=== PATIENT | female | born 2000 | race Caucasian/White ===

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

== ENCOUNTER → 2022-01-19 11:59 | Outpatient (BNVA) | payer OTHER, SELFPAY | PROVIDERS: Family Provider Nurse Practitioner Family; PCP Nurse Practitioner Family; Visit Provider Registered Nurse | DX: R42 Dizziness and giddiness (principal); Z71.3 Dietary counseling and surveillance; L81.9 Disorder of pigmentation, unspecified | CPT/HCPCS: 80053; 82607; 84443; 85025; 85651; 86140 ==

== ENCOUNTER 2022-01-26 14:22 | Outpatient (CLI) | payer OTHER, SELFPAY ==
--- NOTE | 2022-01-26 14:30 | CT_ITS ---
WS: [id number] CT HEAD TECHNIQUE: Noncontrast CT of the head obtained from the skullbase to the vertex. CLINICAL INFORMATION: R51 - Headache COMPARISON: None. DLP: 1107.[address] scans at [facility] use at least one of these dose optimization techniques: automated e xposure control; mA and/or kV adjustment per patient size (includes targeted exams where dose is matc hed to clinical indication); or iterative reconstruction. FINDINGS: No evidence of intracranial hemorrhage or mass effect. Ventricular system and basal cisterns are calvo nt No extra-axial fluid collections. No evidence of mass or mass effect. Normal alvarez-white differenti ation. Paranasal sinuses and mastoid air cells are well aerated. Mild mucosal thickening sphenoid sinus. .No rmal visualized soft tissues. CT/CT head wo con* [id number] IMPRESSION: 1. No evidence of intracranial hemorrhage or mass effect. 2. Normal alvarez-white differentiation. 3. No hydrocephalus. 4. No acute intracranial findings.
== END 2022-01-26 14:23 | disposition home or self-care (01) ==
PROVIDERS: PCP Registered Nurse; Visit Provider Registered Nurse
DX: R51.9 Headache, unspecified (principal); R42 Dizziness and giddiness
CPT/HCPCS: 70450

== ENCOUNTER → 2022-01-29 10:02 | Outpatient (BNVA) | payer OTHER, SELFPAY | PROVIDERS: PCP Registered Nurse; Visit Provider Registered Nurse | DX: L98.9 Disorder of the skin and subcutaneous tissue, unspecified (principal) | CPT/HCPCS: 88304 ==